=== PATIENT | female | born 2000 | race Caucasian/White ===

== ENCOUNTER 2020-05-28 13:07 | Inpatient (IN) | payer OTHER ==
[~2020-05-28] VITALS: Ht 157.5 cm; Wt 47.9 kg
--- NOTE | 2020-05-28 13:38 | PHYS DOC ---
Past History Past Medical History: Depression Past Surgical History: Other Additional Past Surgical Histo: WISDOM TEETH Alcohol Use: Occasionally Adult General Chief Complaint Chief Complaint: OVERDOSE HPI HPI Patient is a 19-year-old female who presents via POV for suicidal attempt via ingestion. Patient reports ingesting X60 tablets of 500 mg Tylenol at 1145 hrs. today. Reports she had generalized nausea and x1 "small" episode of nonbloody nonbilious emesis approximately 1 hour afterwards. She presents to our ER 2 hours after ingestion with generalized nausea. Admits she did this as a suicide attempt. States "I been thinking about this for a while... I took X30 500 mg tablets 1 week ago and did not tell anybody... I did not feel that great but I got through it so today I took the rest of the bottle... I counted and I am sure it was 60 tablets exactly". Denies any other ingestions. No other suicidal attempts. Has history of depression, is established with behavioral health provider in outpatient setting, has been on Lexapro for past 1 month. No other recent changes in health. No fever, COVID-19 contact, headache, syncope, chest pain, shortness of breath, abdominal pain, urinary symptoms, motor or sensory changes. Review of Systems Review of Systems Fourteen body systems of review of systems have been reviewed. See HPI for pertinent positives and negative responses, other vasquez all other systems are negative, non-pertinent or non-contributory Current Medications Current Medications Current Medications Medications (Trade) Dose Ordered Sig/Fredi Start Time Stop Time Status Last Admin Dose Admin Acetylcysteine 7.38 gm/Dextrose 236.9 ml @ 200 mls/hr 1X ONCE 05/28/20 17:15 05/28/20 18:26 Ondansetron HCl (Zofran) 4 mg 1X ONCE 05/28/20 16:15 05/28/20 16:16 DC 05/28/20 16:21 4 MG Sodium Chloride 1,000 ml @ 75 mls/hr 1X ONCE 05/28/20 16:15 05/29/20 05:34 05/28/20 16:20 75 MLS/HR Allergies Allergies Allergies Coded Allergies Type Severity Reaction Last Updated Verified No Known Drug Allergies 05/28/20 No Physical Exam Physical Exam Constitutional: Well developed, well nourished, no acute distress, non-toxic appearance. HENT: Normocephalic, atraumatic, bilateral external ears normal, oropharynx moist, no oral exudates, nose normal. Eyes: PERRLA, EOMI, conjunctiva normal, no discharge. Neck: Normal range of motion, no tenderness, supple, no stridor. Cardiovascular: Heart rate regular, sinus rhythm, no murmurs rubs or gallops Lungs & Thorax: Bilateral breath sounds clear to auscultation Abdomen: Bowel sounds normal, soft, generalized tenderness without guarding or rebound, no masses, no pulsatile masses. Nonsurgical abdomen, no peritoneal signs Skin: Warm, dry, no erythema, no rash. Pale Back: No tenderness, no CVA tenderness. Extremities: No tenderness, no cyanosis, no clubbing, ROM intact, no edema. Neurologic: Alert and oriented X 3, grossly normal motor & sensory function, no focal deficits noted. Psychologic: Flat affect, depressed mood Current Patient Data Vital Signs Vital Signs Date Time Temp Pulse Resp B/P (MAP) Pulse Ox O2 Delivery O2 Flow Rate FiO2 05/28/20 13:07 98.0 118 18 137/77 (97) 99 Room Air Lab Results Laboratory Tests Test 05/28/20 13:33 05/28/20 13:47 05/28/20 14:45 05/28/20 14:53 Blood Gas pH 7.40 Blood Gas PCO2 35 mmHg Blood Gas PO2 104 mmHg Blood Gas HCO3 22 mmol/L Arterial Bld O2 Saturation (Calc) 98 % FiO2 21 % White Blood Count 4.1 x10^3/uL Red Blood Count 4.66 x10^6/uL Hemoglobin 13.7 g/dL Hematocrit 41.0 % Mean Corpuscular Volume 88 fL Mean Corpuscular Hemoglobin 29 pg Mean Corpuscular Hemoglobin Concent 33 g/dL Red Cell Distribution Width 13.1 % Platelet Count 279 x10^3/uL Neutrophils (%) (Auto) 67 % Lymphocytes (%) (Auto) 24 % Monocytes (%) (Auto) 8 % Eosinophils (%) (Auto) 1 % Basophils (%) (Auto) 1 % Neutrophils # (Auto) 2.8 x10^3uL Lymphocytes # (Auto) 1.0 x10^3/uL Monocytes # (Auto) 0.3 x10^3/uL Eosinophils # (Auto) 0.0 x10^3/uL Basophils # (Auto) 0.0 x10^3/uL Prothrombin Time 10.2 SEC Prothromb Time International Ratio 1.0 Activated Partial Thromboplast Time 23 SEC Sodium Level 140 mmol/L Potassium Level 3.2 mmol/L Chloride Level 102 mmol/L Carbon Dioxide Level 22 mmol/L Anion Gap 16 Blood Urea Nitrogen 8 mg/dL Creatinine 0.7 mg/dL Estimated GFR (Cockcroft-Gault) 106.7 BUN/Creatinine Ratio 11 Glucose Level 133 mg/dL Lactic Acid Level 2.7 mmol/L Calcium Level 8.6 mg/dL Total Bilirubin 0.3 mg/dL Aspartate Amino Transf (AST/SGOT) 11 U/L Alanine Aminotransferase (ALT/SGPT) 19 U/L Alkaline Phosphatase 50 U/L Total Protein 7.5 g/dL Albumin 4.0 g/dL Albumin/Globulin Ratio 1.1 Salicylates Level < 2.8 mg/dL Salicylate Last Dose Date Unknown Salicylate Last Dose Time Unknown Acetaminophen Level 196.9 mcg/mL Acetaminophen Last Dose Date Unknown Acetaminophen Last Dose Time Unknown Ethyl Alcohol Level < 10 mg/dL Urine Opiates Screen Neg Urine Methadone Screen Neg Urine Barbiturates Neg Urine Phencyclidine Screen Neg Urine Amphetamine/Methamphetamine Neg Urine Benzodiazepines Screen Neg Urine Cocaine Screen Neg Urine Cannabinoids Screen Neg Urine Ethyl Alcohol Neg Bedside Urine HCG, Qualitative hcg negative Test 05/28/20 14:55 05/28/20 15:50 Urine Collection Type Void Urine Color Yellow Urine Clarity Clear Urine pH 7.0 Urine Specific [place] 1.025 Urine Protein Neg Urine Glucose (UA) Neg mg/dL Urine Ketones (Stick) Neg mg/dL Urine Blood Neg Urine Nitrite Neg Urine Bilirubin Neg Urine Urobilinogen Dipstick 0.2 mg/dL Urine Leukocyte Esterase Neg Urine RBC Occ /HPF Urine WBC Occ /HPF Urine Squamous Epithelial Cells Mod /LPF Urine Bacteria Few /HPF Acetaminophen Level 349.3 mcg/mL Acetaminophen Last Dose Date Unknown Acetaminophen Last Dose Time Unknown SARS-CoV-2 Antigen (Rapid) Negative Current Medications Medications (Trade) Dose Ordered Sig/Fredi Route PRN Reason Start Time Stop Time Status Last Admin Dose Admin Sodium Chloride 1,000 ml @ 1,000 mls/hr Q1H IV 05/28/20 13:45 05/28/20 14:44 DC 05/28/20 13:51 1,000 MLS/HR Sodium Chloride 1,000 ml @ 75 mls/hr 1X ONCE IV 05/28/20 16:15 05/29/20 05:34 05/28/20 16:20 75 MLS/HR Ondansetron HCl (Zofran) 4 mg 1X ONCE IVP 05/28/20 16:15 05/28/20 16:16 DC 05/28/20 16:21 4 MG Acetylcysteine 7.38 gm/Dextrose 236.9 ml @ 200 mls/hr 1X ONCE IV 05/28/20 17:15 05/28/20 18:26 EKG EKG EKG ordered and interpreted by myself at 1414 hrs. as sinus rhythm at 94 bpm, unremarkable intervals, no axis deviation, no acute ischemic findings, no STEMI Radiology/Procedures Radiology/Procedures [] Heart Score HEART Score for Chest Pain: HEART Score for Chest Pain Response (Comments) Value History Slighlty/Non-Suspicious 0 Age < 45 0 Risk Factors No Risk Factors 0 Total 0 Risk Factors: Risk Factors: DM, Current or recent (<one month) smoker, HTN, HLP, family history of CAD, obesity. Risk Scores: Risk Factors: DM, Current or recent (<one month) smoker, HTN, HLP, family history of CAD, obesity. Course & Med Decision Making Course & Med Decision Making Airway patent, breathing unlabored, vitals remarkable for tachycardia only on ar rival X1 large-bore IV access obtained. 1 L normal saline bolus Poison control immediately contacted and case discussed, agreed with work-up thus far based on history and physical exam findings. They recommended repeat Tylenol level 4 hours post ingestion at 1545 hrs. with decision to treat based on level at that time Patient suffered x1 episode of nonbloody nonbilious emesis while in ER Repeat Tylenol level after 4 hours ingestion greater than 300 concerning for probable toxic/threatening dose. Case discussed with poison control with plan is followed: 150 mg/kg loading dose of N-acetylcysteine to be given hour 1, this was initia ann in the ER 12.5 mg/kg/h of N-acetylcysteine drip for subsequent 20 hours Poison control recommends 1 hour prior to end of N-acetylcysteine treatment to repeat Tylenol levels, coags and CMP. If Tylenol level is undetectable at that time we can stop drip. If coags are abnormal, will likely require further work- up as indicated by hospitalist and poison control I contacted Dr. Champion, hospitalist at [facility] who agreed need for admission and accepted patient under his care in ICU setting I updated patient on proposed plan of care, she was amenable for admission and continued treatment. With patient's permission, I contacted patient's father and gave him limited information. He is knowledgeable on overdose attempt and amount ingested and proposed plan of care Critical Care Time This patient required critical care. Due to the fact that the patient required a significant amount of one on one physician - patient contact time, ordering and review of studies, arranging urgent treatment with development of a management plan, evaluation of patients response to treatment with frequent reassessments, and discussions with other providers this patient required 75 minutes of critical care time. Critical care time was indicated due to the inherent instability and/or potential for instability in this patient. The critical care time that is allocated to this patient is above and beyond any time spent on any other billable procedures performed on this patient. Dragon Disclaimer Dragon Disclaimer This electronic medical record was generated, in whole or in part, using a voice recognition dictation system. Departure Departure: Impression: Primary Impression: Tylenol overdose Additional Impression: Depression Disposition: ADMITTED INPT THIS HOSP Admitting Physician: Kaden Champion Condition: STABLE Referrals: PCP,UNKNOWN (PCP) Problem Qualifiers ROBEL GARCIA DO May 28, 2020 13:38
[2020-05-28] MEDS ORDERED: IV NORMAL SALINE 1,000ML 1,000 ML IV SCH (13:45)
[2020-05-28 13:55] LABS: BGAS PH 7.4 (7.35-7.45)
[2020-05-28 14:04] LABS: BASO % 1 % (0-3); EOS % 1 % (0-3); HEMOGLOBIN 13.7 g/dL (12.0-15.5); LYMPH % 24 % (24-48); MEAN CORPUSCULAR HEMOGLOBIN 29 pg (25-35); MEAN CORPUSCULAR HGB CONC 33 g/dL (31-37); MEAN CORPUSCULAR VOLUME 88 fL (79-100); MONO # 0.3 x10^3/uL (0.0-1.1); MONO % 8 % (0-9); NEUT # 2.8 x10^3uL (1.8-7.7); NEUT % 67 % (31-73); PLATELET COUNT 279 x10^3/uL (140-400); RED BLOOD COUNT 4.66 x10^6/uL (3.50-5.40); RED CELL DISTRIBUTION WIDTH 13.1 % (11.5-14.5); WHITE BLOOD COUNT 4.1 x10^3/uL (4.0-11.0)
[2020-05-28 14:19] LABS: CALCIUM 8.6 mg/dL (8.5-10.1); CREATININE 0.7 mg/dL (0.6-1.0); GFR 106.7; POTASSIUM 3.2 mmol/L (3.5-5.1)
[2020-05-28 14:23] LABS: ACETAMIN 196.9 mcg/mL (10-30)
[2020-05-28 14:24] LABS: SALIC < 2.8 mg/dL (2.8-20.0)
[2020-05-28 14:25] LABS: ALBUMIN/GLOBULIN RATIO 1.1 (1.0-1.7); ETHANOL < 10 mg/dL (0-10); TOTAL BILIRUBIN 0.3 mg/dL (0.2-1.0); TOTAL PROTEIN 7.5 g/dL (6.4-8.2)
[2020-05-28 15:11] LABS: BILIRUBIN,URINE NEG (NEG); CLARITY,URINE CLEAR; COLOR,URINE YELLOW; GLUCOSE,URINE NEG (NEG); UROBILINOGEN,URINE 0.2 mg/dL (0.2 mg/dL)
[2020-05-28 15:12] LABS: BACTERIA,URINE FEW /HPF (0-FEW); NITRITE,URINE NEG (NEG); RBC,URINE OCC /HPF (0-2); SQUAMOUS EPITHELIAL CELL,UR MOD /LPF; WBC,URINE OCC /HPF (0-4)
[2020-05-28 15:14] LABS: BARBITURATES NEG (NEG); BENZODIAZEPINES NEG (NEG); CANNABINOIDS NEG (NEG); COCAINE NEG (NEG); METHADONE NEG (NEG); OPIATES NEG (NEG); PHENCYCLIDINE NEG (NEG)
[2020-05-28 15:17] LABS: AMPHETAMINE/METHAMPHETAMINE NEG (NEG)
[2020-05-28] MEDS ORDERED: ONDANSETRON PF 4 MG/2 ML VIAL. IVP ONE ×2 (16:15→17:30)
[2020-05-28] MEDS ORDERED: IV NORMAL SALINE 1,000ML 1,000 ML IV ONE (16:15)
--- NOTE | 2020-05-28 16:58 | EKG ---
[address] [address] Test Date: 2020-05-28 Test Time: 14:10:33 Pat Name: PHILIPP GAUTAM Department: Room: Gender: F Clerical Stock Inspector: NOEL : 2000 Requested By: ROBEL GARCAI Order Number: [id number] Reading MD: Measurements Intervals [place] Rate: 94 P: 104 DC: 140 QRS: 52 QRSD: 76 T: 51 QT: 338 QTc: 428 Interpretive Statements SINUS RHYTHM NORMAL ECG RI6.02 No previous ECG available for comparison
[2020-05-28 17:08] LABS: ACETAMIN 349.3 mcg/mL (10-30)
[2020-05-28] MEDS ORDERED: DEXTROSE 5% IV ONE ×2 (17:15→21:30)
[2020-05-28] MEDS ORDERED: ACETYLCYSTEINE IV ONE ×2 (17:15→21:30)
[2020-05-28] MEDS ORDERED: ONDANSETRON PF 4 MG/2 ML VIAL. IVP PRN (17:15)
[2020-05-28 19:10] VITALS: BP 122/84
--- NOTE | 2020-05-28 19:24 | NUR ---
The patient, PHILIPP GAUTAM, 19 y/o, F admitted by NICK FRAGOSO MD, was given written information regarding hospital policies, unit procedures and contact persons. Valuables were checked and logged. Call light at bedside. Will continue to monitor.
[2020-05-28] MEDS ORDERED: LEXAPRO10 MG PO (20:15)
[2020-05-28] MEDS ORDERED: birth control (20:15)
[2020-05-28 20:28] VITALS: BP 130/92
--- NOTE | 2020-05-28 21:23 | NUR ---
Notified MD of pt condition and new orders received. Will continue to monitor.
[2020-05-28 21:28] VITALS: BP 112/95
[2020-05-28] MEDS ORDERED: PROCHLORPERAZINE 10 MG/2 ML VIAL. IV PRN (21:30)
[2020-05-28] MEDS: IV NORMAL SALINE 1,000ML 1,000 ML IV SCH (21:30)
[2020-05-28 22:15] VITALS: BP 106/62
--- NOTE | 2020-05-28 22:31 | NUR ---
Pt denies SI at time of admission. Pt states, "I don't want to kill myself now. I just want to feel better." Pt was vomiting and is now sleeping after compazine was given.
[2020-05-28 23:30] VITALS: BP 107/72
[2020-05-29] VITALS (16 sets, daily range): BP systolic 108–139; BP diastolic 69–88
--- NOTE | 2020-05-29 01:20 | NUR ---
When pt gets up and walks, pt heart rate jumps to the 130's. Will continue to monitor.
[2020-05-29] MEDS ORDERED: DEXTROSE 5% IV ONE (01:30)
[2020-05-29] MEDS ORDERED: ACETYLCYSTEINE IV ONE (01:30)
--- NOTE | 2020-05-29 04:56 | NUR ---
Posion control called to talk about pt. States, "keep doing that until the tylenol level is down to undetectable." Pt is awake, alert, pleasant, and watching television. Will continue to monitor.
[2020-05-29 05:28] LABS: BASO # 0.1 x10^3/uL (0.0-0.2); BASO % 2 % (0-3); EOS % 0 % (0-3); HEMATOCRIT 36.1 % (36.0-47.0); HEMOGLOBIN 12.2 g/dL (12.0-15.5); LYMPH # 1.5 x10^3/uL (1.0-4.8); LYMPH % 25 % (24-48); MEAN CORPUSCULAR HEMOGLOBIN 30 pg (25-35); MEAN CORPUSCULAR HGB CONC 34 g/dL (31-37); MEAN CORPUSCULAR VOLUME 88 fL (79-100); MONO # 0.4 x10^3/uL (0.0-1.1); MONO % 6 % (0-9); NEUT # 4.2 x10^3uL (1.8-7.7); NEUT % 68 % (31-73); PLATELET COUNT 256 x10^3/uL (140-400); RED BLOOD COUNT 4.13 x10^6/uL (3.50-5.40); RED CELL DISTRIBUTION WIDTH 13.4 % (11.5-14.5); WHITE BLOOD COUNT 6.2 x10^3/uL (4.0-11.0)
[2020-05-29] MEDS: IV NORMAL SALINE 1,000ML 1,000 ML IV SCH ×2 (06:17→11:00)
[2020-05-29 06:20] LABS: ALBUMIN 3.3 g/dL (3.4-5.0); ALBUMIN/GLOBULIN RATIO 1.1 (1.0-1.7); CALCIUM 8.4 mg/dL (8.5-10.1); CREATININE 0.5 mg/dL (0.6-1.0); GFR 157.3; TOTAL PROTEIN 6.4 g/dL (6.4-8.2)
[2020-05-29 06:21] LABS: POTASSIUM 3.2 mmol/L (3.5-5.1); TOTAL BILIRUBIN 0.5 mg/dL (0.2-1.0)
[2020-05-29 06:22] LABS: ACETAMIN 7.7 mcg/mL (10-30)
--- NOTE | 2020-05-29 09:16 | HP ---
ADMIT DATE: 05/28/2020 ATTENDING PHYSICIAN: Dr. Fragoso. CHIEF COMPLAINT: Tylenol overdose. HISTORY OF PRESENT ILLNESS: The patient is a very sharp and intelligent 19-year-old female who was at home from college. 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 Her father is a colonel on the [employer]. She lives with them during time away from school. She has had a history of depression for the last year, she has been to counseling session, recently started on Lexapro. She voided talking about triggers causing her to be suicidal. She felt despondent and low. She took approximately thirty 500 mg tablets of Tylenol a week ago, did not tell anybody. Despite that, she took another 60 tablets the day of admission, totalling 30,000 mg. She was started on Mucomyst. She was given charcoal. There is no recent COVID exposure. She did not appear suicidal. She was somewhat remorseful. She was admitted for further treatment and evaluation. PAST MEDICAL HISTORY: Unremarkable for any chronic illnesses. She has had wisdom tooth removed. She has been on Lexapro as her only medication. ALLERGIES: She has no known drug allergies. SOCIAL HISTORY: Nonsmoker, nondrinker, no drug use. FAMILY HISTORY: Parents are alive at age 47 and 48 respectively, they are healthy. She is the middle child. She has an older brother and a younger sister who lives at home. They are healthy. REVIEW OF SYSTEMS: Significant for the depression. She has never been . She is a fairly good student. She has aspiration to go into Law school. She denied any suicidal ideation. She was a bit remorseful. All other systems reviewed and determined to be negative. PHYSICAL EXAMINATION: GENERAL: When I saw her, this is a pleasant young female. Affect was fairly normal. VITAL SIGNS: Initial blood pressure is 113/76, pulse 63 and regular. She was afebrile, oxygen saturation 98% on room air. HEENT: Head is without trauma. Pupils are reactive. Sclerae nonicteric. Oropharynx clear. NECK: Supple, no bruits. LUNGS: Clear. CARDIOVASCULAR: Showed regular heart sounds, no gallops. Peripheral pulses are palpable and full. ABDOMEN: Soft, no guarding, rebound tenderness. Bowel sounds were hypoactive. EXTREMITIES: Show no cyanosis or edema. NEUROLOGIC: Focally intact. Speech is fluent. SKIN: Warm and dry. LABORATORY DATA: Yesterday, the acetaminophen level peaked at 349. Salicylates were normal, other drug screen was negative. ASSESSMENT: 1. A 19-year-old female with Tylenol overdose. 2. Acetaminophen toxicity. 3. Underlying depression with anxiety. PLAN: 1. Admit to the ICU. 2. Per protocol N-acetylcysteine per Poison Control. 3. Serial chemistries and Tylenol level. 4. We will have the social service people determine whether she is actively suicidal. I do believe she is suicidal at this time. NICK FRAGOSO MD DR: EMIR/migdalia JOB#: [id number] / [id number]
--- NOTE | 2020-05-29 10:53 | NUR ---
Spoke with Sara and Renea from PAT team. Renea will come and evaluate pt after Acetaminophen level results undetectable. Lab draw will be at 12pm today. WCM.
[2020-05-29 12:28] LABS: ACETAMIN < 2 mcg/mL (10-30)
--- NOTE | 2020-05-29 15:12 | NUR ---
Renea from PAT team is at bedside evaluating patient. JSM
--- NOTE | 2020-05-29 16:00 | NUR ---
Patient's father called very upset stating his daughter's needs aren't being met. This nursing engraving supervisor spoke to father, explained that patient is one suicide precautions due to her suicide attempt. Patient is not allowed to have any objects that could possible be used to harm herself (meaning her cell phone and phone administrative support specialist). Father states patient has anxiety and she usually walks and listens to music for her anxiety. This engraving supervisor arranged for pt to be taken for walks or showers as long as she is accompanied by her sitter/RN. This engraving supervisor also signed out a valorie fire from [facility] to pt could listen to music or play games. Pt can watch tv also, call light can only be in her room as long as her sitter is within 3 feet of her. PAT team had also informed RN that pt has had several attempts of trying to hang herself. This engraving supervisor stressed the importance of patient safety must be followed. Pt is also in agreement of the above information.
--- NOTE | 2020-05-29 19:24 | NUR ---
After evaluation with PAT team, patient was evaluated to needing inpatient psychiatric facility. Dr Champion stated that patient will be able to discharge tomorrow after morning labs. This RN spoke with father and patient today about cell phone policy with SI patients in hospital and cannot have personal belongings. Dr Champion did tell patient and father she could have cell phone but this RN explained that it was a safety concern and patient not allowed to have at an inpatient psychiatric facility. Father was frustrated stating "Dr Champion, the attending physician, said this morning she could have cell phone" and this RN reexplained that Dr Champion was not aware of the hospital policy. This RN had pt father transferred telephone call to speak with wash house supervisor Ceila for concerns.
[2020-05-29] MEDS ORDERED: ARIP2TAB35 PO (19:34)
[2020-05-30] MEDS: IV NORMAL SALINE 1,000ML 1,000 ML IV SCH (03:40)
[2020-05-30 05:49] VITALS: BP 117/83
[2020-05-30 06:05] LABS: ALBUMIN 3.4 g/dL (3.4-5.0); ALBUMIN/GLOBULIN RATIO 1.1 (1.0-1.7); CALCIUM 8.6 mg/dL (8.5-10.1); CREATININE 0.4 mg/dL (0.6-1.0); GFR 203.5; POTASSIUM 3.3 mmol/L (3.5-5.1); TOTAL BILIRUBIN 0.4 mg/dL (0.2-1.0); TOTAL PROTEIN 6.4 g/dL (6.4-8.2)
--- NOTE | 2020-05-30 09:00 | NUR ---
This nursing customer services supervisor received a phone call from pt's father, again he is very upset that he was not informed of where his daughter is being transferred to, what insurances does that facility take, and HIPAA forms. He states that "his daughter is not going anywhere until he comes to this hospital and has her sign HIPAA/medical records consent for pt" This customer services supervisor checked with RN. EMS has been called for transfer, but they will not arrive to hospital for over and hour. Father will be here prior to EMS arrival. Renea from PAT team had called father yesterday after evaluating pt and plan for placement, advised father of what items pt will need at inpatient facility. Dr. Champion called father and spoke with him for approximately 15 minutes. Father and mother are standing outside waving at pt through window.
--- NOTE | 2020-05-30 09:30 | NUR ---
Pt was able to shower, and keila Johnson was in the shower room with patient the entire time due to the suicidal precautions. Her father brought up consent forms and HIPPA forms for [facility]. Renny taylor
--- NOTE | 2020-05-30 09:49 | DS ---
DATE OF DISCHARGE: 05/30/2020 ATTENDING PHYSICIAN: Dr. Fragoso. FINAL DISCHARGE DIAGNOSES: 1. Tylenol overdose. 2. Major depression. 3. Acetaminophen toxicity. 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 She took 6500 mg acetaminophen, totalling 30,000 mg. Her level peaked at 349. She was admitted for treatment and evaluation. PHYSICAL EXAMINATION: Please see my dictated note. PERTINENT LABORATORY AND X-RAY STUDIES: Toxicology on admission showed a Tylenol level that peaked at 349 on the day of admission. Following treatment the next day, it came down to 7.7 and later in the day, it came down to less than 2. Her other drug screens were unremarkable. Her laboratory studies also showed followup transaminases. Her electrolytes were within normal range. Potassium 3.3 mEq, asymptomatic. Creatinine was stable at 0.5 mg/dL. Admission liver panel was unremarkable. Subsequent transaminases and liver panel showed normal values on the second and third hospital day. Bilirubin was 0.4. Transaminases were within normal range. COURSE IN THE HOSPITAL: The patient was admitted to the ICU. She was kept under patient's environmental health and safety leader for suicide precautions. She received N-acetylcysteine intravenously per protocol. Subsequent Tylenol levels were drawn following protocol. Diet was advanced. Her affect was fairly good. She had screening by the guidance center indicating that she has other ideations of self harm. They have recommended inpatient psychiatric care. Therefore, on the morning of the third hospital day, the patient was determined to be medically stable. She was transferred by secure transport to inpatient psychiatric facility in [place] named [facility]. We will hold off her prescription meds, so they see her.. The patient was then discharged from our hospital in stable condition from a medical standpoint with secure transport for inpatient psychiatric care. NICK FRAGOSO MD DR: EMIR/migdalia JOB#: [id number] / [id number] ecc Chart, The
--- NOTE | 2020-05-30 09:50 | NUR ---
EMS at bedside, consents were signed and paperwork was sent with patient to [facility], at [facility]. Pt is stable at this time and requires suicidal precautions and monitoring during transport. Iv's were discontinued and pt left via ems.
== END 2020-05-30 09:50 | DRG 918 ==
LOC: ER 13:07 → EEVIPCON 13:07 → ICU 17:14
PROVIDERS: ADMIT Hospitalist; ATTEND Hospitalist
DX: T39.1X1A Poisoning by 4-Aminophenol derivatives, accidental (unintentional), initial encounter (principal); F41.8 Other specified anxiety disorders; T39.1X5A Adverse effect of 4-Aminophenol derivatives, initial encounter; Z20.828 Contact with and (suspected) exposure to other viral communicable diseases; Z79.899 Other long term (current) drug therapy; F32.9 Major depressive disorder, single episode, unspecified; Y92.89 Other specified places as the place of occurrence of the external cause
CPT/HCPCS: 36415; 80053; 80307; 80329; 81001; 81025; 82803; 83605; 85025; 85610; 85730; 87426; 93005; 96361; 96365; 96375; 99291; 99292; G0480; J0132; J0780; J2405; U0003; J7030